=== PATIENT | male | born 1975 ===

== ENCOUNTER 2021-01-08 21:28 | Inpatient (IN) ==
[~2021-01-08 21:28] MED LIST: *HR* Etomidate 20 MG/10 ML AMPUL IVP ONE; *HR* Midazolam HCl 5 MG/5 ML VIAL IVP ONE; *HR* Rocuronium Bromide 50 MG/5 ML VIAL IVP ONE
[2021-01-08] MEDS ORDERED: Isovue-370 500 ML BOTTLE IVP ONE ×2 (21:35→22:55)
[2021-01-08] MEDS ORDERED: 0.9 % Sodium Chloride 1,000 ML ONE ×2 (21:42→22:59)
[2021-01-08] MEDS ORDERED: FentaNYL (PF) 1,000 MCG/100 ML IV.SOLN IVC SCH (21:45)
[2021-01-08 21:50] LABS: ABG Base Excess -1 mEq/L (-2 to 3); ABG HCO3 25 mEq/L (21-27); ABG Oxygen Saturation 100 % (95-98); ABG PCO2 44 mmHg (35-45); ABG PH 7.36 pH Units (7.32-7.45); ABG PO2 488 mmHg (85-104); ABG TCO2 26 mEq/L (20-26); Blood Gas VT 500 cc
[2021-01-08] MEDS ORDERED: *HR* Midazolam HCl 5 MG/5 ML VIAL IVP ONE ×3 (21:54→23:51)
[2021-01-08 21:59] LABS: Basophils % 0.5 %; Eosinophils # 0.1 K/mcL (0.0-0.6); Eosinophils % 1.8 %; Hematocrit 41.9 % (37.5-50.1); Hemoglobin 14.3 g/dL (12.9-16.9); Immature Granulocytes % 0.2 % (0-4); Lymphocytes % 35.6 %; Mean Corpuscular HGB Conc 34.1 g/dL (31.6-35.5); Mean Corpuscular Hemoglobin 30.1 pg (28.0-33.3); Mean Corpuscular Volume 88.2 fL (83.0-100.0); Mean Platelet Volume 9.8 fL (9.4-12.4); Monocytes # 0.5 K/mcL (0.0-1.3); Monocytes % 8.6 %; Platelet Count 214 K/mcL (140-400); Red Blood Count 4.75 M/mcL (4.19-5.50); Red Cell Distribution Width 12.2 % (11.5-14.5); Segmented Neutrophils % 53.3 %; White Blood Count 5.6 K/mcL (4.3-11.1)
[2021-01-08 22:06] LABS: Bilirubin,Urine Negative (Negative); Blood,Urine Negative (Negative); Clarity,Urine Clear (Clear); Color,Urine Colorless (Yellow); Glucose,Urine (UA) 100 mg/dL (Normal); Ketones,Urine Negative (Negative); Leukocyte Esterase,Urine Negative (Negative); Nitrite,Urine Negative (Negative); Protein,Urine Negative (Neg-Trace); RBC,Urine 0-3 per hpf (0-3); Specific Gravity,Urine 1.005 (1.010-1.025); Urobilinogen,Urine Normal (Normal)
[2021-01-08 22:08] LABS: INR 1.1
[2021-01-08 22:10] LABS: Activated Partial Thrombo Time 27.9 Seconds (26.0-36.0)
[2021-01-08 22:16] LABS: Amphetamine Screen,Urine Negative ng/mL (Cutoff=1000); Barbiturate Screen,Urine Negative ng/mL (Cutoff=200); Benzodiazepines Screen,Urine Negative ng/mL (Cutoff=200); Cannabinoid Screen,Urine Negative ng/mL (Cutoff = 50); Cocaine Screen,Urine Negative ng/mL (Cutoff= 300); Opiate Screen,Urine Negative ng/mL (Cutoff=300); Phencyclidine Screen,Urine Negative ng/mL (Cutoff=25)
[2021-01-08 22:27] LABS: Acetaminophen < 10 mcg/mL (10-20); Alanine Aminotransferase 34 Units/L (7-52); Albumin 4.4 g/dL (3.5-5.7); Albumin/Globulin Ratio 1.4 (1.1-2.2); Alkaline Phosphatase 52 Units/L (34-104); Aspartate Amino Transferase 27 Units/L (13-39); BUN/Creatinine Ratio 7 (6-26); Bilirubin,Direct 0.1 mg/dL (0.0-0.2); Bilirubin,Indirect 0.9 mg/dL (0.0-1.0); Blood Urea Nitrogen 5 mg/dL (6-20); Calcium 9.5 mg/dL (8.6-10.3); Carbon Dioxide 23 mEq/L (23-29); Chloride 95 mEq/L (98-107); Creatine Kinase 177 Units/L (30-223); Ethanol 161 mg/dL (Less than 10); Globulin 3.1 g/dL (2.4-3.5); Glucose 153 mg/dL (70-105); Osmolality,Calculated 276 (280-300); Potassium 3.5 mEq/L (3.5-5.1); Salicylate < 2.5 mg/dL (15.0-30.0); Sodium 133 mEq/L (136-145); Total Protein 7.5 g/dL (6.4-8.9); Troponin I < 0.03 ng/mL (< 0.04); eGFR For African Americans > 60 (> 60); eGFR For Non-African Americans > 60 (> 60)
[2021-01-08] MEDS ORDERED: 0.9 % Sodium Chloride 1,000 ML IVC ONE (22:57)
[2021-01-09] MEDS ORDERED: Artificial Tears SOLN 15 ML BOTTLE BOTH EYES PRN ×2 (00:20→14:41)
[2021-01-09] MEDS: Chlorhexidine Rinse 15 ML MOUTHWASH MM SCH ×4 (00:38→19:15)
[2021-01-09] MEDS ORDERED: Naloxone 0.4 MG/ML INJ IVP PRN ×2 (02:41→14:41)
[2021-01-09] MEDS ORDERED: Perflutren Lipid Microsphere 1.3 ML in 0.9 % Sodium Chloride 8.7 ML IVP PRN ×3 (03:44→14:41)
[2021-01-09 04:07] LABS: Basophils % 0.5 %; Eosinophils # 0.1 K/mcL (0.0-0.6); Eosinophils % 1.3 %; Hematocrit 45.6 % (37.5-50.1); Immature Granulocytes % 0.2 % (0-4); Lymphocytes # 2.3 K/mcL (0.6-4.6); Lymphocytes % 41.3 %; Mean Corpuscular HGB Conc 32.9 g/dL (31.6-35.5); Mean Corpuscular Hemoglobin 29.1 pg (28.0-33.3); Mean Corpuscular Volume 88.5 fL (83.0-100.0); Mean Platelet Volume 9.9 fL (9.4-12.4); Monocytes # 0.4 K/mcL (0.0-1.3); Monocytes % 7.1 %; Neutrophils # 2.7 K/mcL (1.6-8.9); Platelet Count 239 K/mcL (140-400); Red Blood Count 5.15 M/mcL (4.19-5.50); Red Cell Distribution Width 12.4 % (11.5-14.5); Segmented Neutrophils % 49.6 %; White Blood Count 5.5 K/mcL (4.3-11.1)
[2021-01-09] MEDS: Artificial Tears SOLN 15 ML BOTTLE BOTH EYES SCH ×7 (04:07→23:42)
[2021-01-09 04:12] LABS: INR 1.1; Prothrombin Time 12.8 Seconds (9.4-12.1)
[2021-01-09] MEDS: Ondansetron 4 MG/2 ML VIAL IVP PRN ×2 (04:20→11:30)
[2021-01-09] MEDS ORDERED: 0.9 % Sodium Chloride 1,000 ML IVC ONE (04:22)
[2021-01-09 04:27] LABS: Chol/HDL Ratio 3.6 (0-4.9); Magnesium 1.8 mg/dL (1.6-2.6)
[2021-01-09] MEDS ORDERED: *HR* Dextrose 50 % in Water (Vial) 50 ML VIAL IVP PRN ×2 (06:15→14:41)
[2021-01-09] MEDS ORDERED: Dextrose Gel 15 GM/37.5 ML TUBE PO PRN ×4 (06:15→14:41)
[2021-01-09] MEDS ORDERED: D5% in Water 1,000 ML IVC PRN ×2 (06:15→14:41)
[2021-01-09] MEDS ORDERED: Pantoprazole 40 MG VIAL IVP SCH (06:30)
[2021-01-09] MEDS ORDERED: lisinopriL 5 MG TABLET PO SCH (09:00)
[2021-01-09] MEDS ORDERED: Isosorbide MONOnitrate (24 HR) 60 MG TAB.ER.24H PO SCH (09:00)
[2021-01-09] MEDS ORDERED: Aspirin Enteric Coated 81 MG Tablet PO SCH (09:00)
[2021-01-09] MEDS ORDERED: Insulin LISPRO 300 UNITS/3 ML VIAL SUBQ SCH (12:00)
[2021-01-09] MEDS ORDERED: Ondansetron 4 MG/2 ML VIAL IVP PRN (14:41)
[2021-01-09] MEDS: Acetaminophen 325 MG TABLET PO PRN (14:56)
[2021-01-09] MEDS: Insulin LISPRO 300 UNITS/3 ML VIAL SUBQ SCH (16:58)
[2021-01-09] MEDS: Isosorbide MONOnitrate (24 HR) 60 MG TAB.ER.24H PO SCH (19:25)
[2021-01-10] MEDS: Insulin LISPRO 300 UNITS/3 ML VIAL SUBQ SCH ×2 (00:27→06:54)
[2021-01-10] MEDS: Acetaminophen 325 MG TABLET PO PRN (03:17)
[2021-01-10] MEDS ORDERED: Pantoprazole 40 MG VIAL IVP SCH (06:30)
[2021-01-10] MEDS: Artificial Tears SOLN 15 ML BOTTLE BOTH EYES SCH (08:46)
[2021-01-10] MEDS: Isosorbide MONOnitrate (24 HR) 60 MG TAB.ER.24H PO SCH (08:47)
[2021-01-10] MEDS: Chlorhexidine Rinse 15 ML MOUTHWASH MM SCH (08:47)
[2021-01-10] MEDS ORDERED: Aspirin Enteric Coated 81 MG Tablet PO SCH (09:00)
[2021-01-10] MEDS ORDERED: lisinopriL 5 MG TABLET PO SCH (09:00)
[2021-01-10 11:27] VITALS: BP 108/60
[2021-01-10] MEDS ORDERED: Insulin LISPRO 300 UNITS/3 ML VIAL SUBQ SCH ×2 (11:30→21:00)
== END 2021-01-10 12:00 | disposition home or self-care (01) | DRG 896 ==
LOC: EMEROOARM 21:28 → ICNU 01-09 00:54 → 2ANU 01-09 14:29
PROVIDERS: ADMIT Internal Medicine; ATTEND Internal Medicine